=== PATIENT | male | born 1950 ===

== ENCOUNTER 2018-10-09 17:34 | Observation (INO) | payer MEDICARE ==
[2018-10-09 17:35] VITALS: BMI 29.9
[2018-10-09 18:18] LABS: BASO % 0.6 % (0.0-2.0); EOS # 0.2 K/uL (0.0-0.7); EOS % 3.6 % (0.0-4.0); HEMOGLOBIN 12.9 g/dL (12.0-18.0); LYMPH # 1.3 K/uL (1.0-4.3); LYMPH % 27.7 % (20.0-40.0); MEAN CELL VOLUME 94.8 fL (80.0-94.0); MEAN CORPUSCULAR HEMOGLOBIN 32.8 pg (27.0-31.0); MEAN CORPUSCULAR HGB CONC 34.6 g/dL (33.0-37.0); MEAN PLATELET VOLUME 7.9 fL (7.2-11.7); MONO # 0.7 K/uL (0.0-0.8); MONO % 14.4 % (0.0-10.0); NEUT # 2.5 K/uL (1.8-7.0); NEUT % 53.7 % (50.0-75.0); RBC 3.94 Mil/uL (4.40-5.90); RED CELL DISTRIBUTION WIDTH 12.4 % (11.5-14.5); WHITE BLOOD COUNT 4.6 K/uL (4.8-10.8)
[2018-10-09 18:30] LABS: ALB/GLOB RATIO 1.3 (1.0-2.1); ALBUMIN 4.2 g/dL (3.5-5.0); ALT/SGPT 33 U/L (21-72); AST/SGOT 30 U/L (17-59); BLOOD UREA NITROGEN 18 mg/dL (9-20); CALCIUM 9.2 mg/dl (8.6-10.4); GFR NON-AFRICAN AMERICAN 51
[2018-10-09 18:42] LABS: B-TYPE NATRIURETIC PEPTIDE 52.8 pg/mL (0-900)
--- NOTE | 2018-10-09 19:06 | C.PDOC ---
History Of Present Illness 68 year old male, with history of CAD with stents and HTN, is brought to ED by EMS after a pre-syncope episode in the bathroom. States he was eating lunch when he felt bloated, nauseous, and lightheadedness. Patient started burping a lot and felt slightly better. States he went to the bathroom when he suddenly felt like passing out, prompting him to call out to his son. Patient denies LOC, head injury, or falling. Patient was severely bradycardic in the 30s on arrival to ED but blood pressure is stable. Time Seen by Provider: 10/09/18 17:38 Chief Complaint (Nursing): Syncope History Per: Patient History/Exam Limitations: no limitations Onset/Duration Of Symptoms: Hrs Current Symptoms Are (Timing): Still Present Past Medical History Reviewed: Historical Data, Nursing Documentation, Vital Signs Vital Signs: Last Vital Signs Temp 97.5 F L 10/09/18 17:36 Pulse 36 L 10/09/18 17:36 Resp 18 10/09/18 17:36 BP 136/63 10/09/18 17:36 Pulse Ox 100 10/09/18 17:36 - Medical History PMH: HTN Surgical History: Coronary Stent Family History: States: No Known Family Hx - Social History Hx Alcohol Use: Yes Hx Substance Use: No - Immunization History Hx Tetanus Toxoid Vaccination: No Hx Influenza Vaccination: No Hx Pneumococcal Vaccination: No Review Of Systems Except As Marked, All Systems Reviewed And Found Negative. Cardiovascular: Positive for: Light Headedness. Negative for: Chest Pain Respiratory: Negative for: Shortness of Breath Gastrointestinal: Positive for: Nausea Musculoskeletal: Negative for: Neck Pain Neurological: Positive for: Other (Pre-syncope; no LOC). Negative for: Headache Physical Exam - Physical Exam Appears: Non-toxic, No Acute Distress Skin: Warm, Dry Head: Atraumatic, Normacephalic Eye(s): bilateral: Normal Inspection, PERRL, EOMI Oral Mucosa: Moist Neck: Supple Chest: Symmetrical Cardiovascular: Rhythm Regular, No Murmur Respiratory: Normal Breath Sounds, No Rales, No Rhonchi, No Wheezing Gastrointestinal/Abdominal: Soft, No Tenderness, Distention Extremity: Bilateral: Atraumatic, Normal Color And Temperature, Normal ROM Neurological/Psych: Oriented x3, Normal Speech ED Course And Treatment - Laboratory Results Result Diagrams: 10/09/18 18:15 10/09/18 18:15 ECG Rhythm: Sinus Bradycardia Interpretation Of ECG: No ST elevations or depressions. Rate From EC O2 Sat by Pulse Oximetry: 100 (RA) Pulse Ox Interpretation: Normal Medical Decision Making Medical Decision Making: Plan: --EKG --Bloodwork --Chest X-Ray Disposition Discussed With : Kyrie Quintana - Disposition Disposition: HOSPITALIZED Disposition Time: 19:29 Condition: GUARDED - Clinical Impression Clinical Impression: Near syncope, Bradyarrhythmia - Scribe Statement The provider has reviewed the documentation as recorded by the Dru Mcclain Provider Attestation: All medical record entries made by the Dru were at my direction and personally dictated by me. I have reviewed the chart and agree that the record accurately reflects my personal performance of the history, physical exam, medical decision making, and the department course for this patient. I have also personally directed, reviewed, and agree with the discharge instructions and disposition. Decision To Admit - Pt Status Changed To: Hospital Disposition Of: Observation - InPatient: Physician Admission Certification: I certify that this patient requires 2 or more midnights of care for the following reason:: severe bradycardia - . Bed Request Type: Telemetry Patient Diagnosis: Near syncope, Bradyarrhythmia
[2018-10-09 21:46] VITALS: RESP 20
--- NOTE | 2018-10-09 23:21 | CP.PCM.HP ---
Past Patient History - Past Social History Smoking Status: Never Smoked - CARDIAC Hx Hypertension: Yes - PSYCHIATRIC Hx Substance Use: No - SURGICAL HISTORY Hx Coronary Stent: Yes Meds Allergies/Adverse Reactions: Allergies Allergy/AdvReac Type Severity Reaction Status Date / Time No Known Allergies Allergy Verified 10/09/18 17:35 Results - Vital Signs Recent Vital Signs: Last Vital Signs Temp 97.9 F 10/09/18 21:45 Pulse 45 L 10/09/18 21:45 Resp 20 10/09/18 21:45 BP 138/69 10/09/18 21:45 Pulse Ox 100 10/09/18 21:45 - Labs Result Diagrams: 10/09/18 18:15 10/09/18 18:15 Labs: Laboratory Results - last 24 hr 10/09/18 10/09/18 18:15 18:15 WBC 4.6 L RBC 3.94 L Hgb 12.9 Hct 37.4 MCV 94.8 H MCH 32.8 H MCHC 34.6 RDW 12.4 Plt Count 233 MPV 7.9 Neut % (Auto) 53.7 Lymph % (Auto) 27.7 [place] % (Auto) 14.4 H Eos % (Auto) 3.6 Baso % (Auto) 0.6 Neut # (Auto) 2.5 Lymph # (Auto) 1.3 [place] # (Auto) 0.7 Eos # (Auto) 0.2 Baso # (Auto) 0.0 Sodium 136 Potassium 3.9 Chloride 100 Carbon Dioxide 29 Anion Gap 11 BUN 18 Creatinine 1.4 Est GFR ( Amer) > 60 Est GFR (Non-Af Amer) 51 Random Glucose 133 H Calcium 9.2 Total Bilirubin 0.5 AST 30 ALT 33 Alkaline Phosphatase 74 Troponin I < 0.0120 NT-Pro-B Natriuret Pep 52.8 Total Protein 7.3 Albumin 4.2 Globulin 3.1 Albumin/Globulin Ratio 1.3
[2018-10-10] MEDS: Enoxaparin 40 mg Syringe SC SCH (09:18)
--- NOTE | 2018-10-10 09:40 | RAD ---
Date of service: 10/09/2018 HISTORY: chest pain COMPARISON: None available. FINDINGS: LUNGS: External pacer identified in position. No active pulmonary disease. PLEURA: No significant pleural effusion identified, no pneumothorax apparent. CARDIOVASCULAR: No aortic atherosclerotic calcification present. Normal cardiac size. No pulmonary vascular congestion. OSSEOUS STRUCTURES: Sternotomy wires identified in position VISUALIZED UPPER ABDOMEN: Normal. OTHER FINDINGS: . IMPRESSION: No acute cardiopulmonary disease appreciated.
[2018-10-10] MEDS ORDERED: Home Med 1 UNIT (Fenofibrate,Micronized [Fenofibrate] 134 MG) PO SCH (10:00)
[2018-10-10] MEDS ORDERED: diltiaZEM 240 mg/24 Hours CD Cap PO SCH (10:00)
[2018-10-10] MEDS ORDERED: Home Med 1 UNIT (Dexlansoprazole [Dexilant] 60 MG) PO SCH (10:00)
[2018-10-10] MEDS ORDERED: Ergocalciferol 50,000 Intl Units Cap PO SCH (10:00)
--- NOTE | 2018-10-10 10:29 | CP.PCM.CON ---
History of Present Illness - History of Present Illness History of Present Illness: Dimitri Chilel DO, PGY-1 Cardiology Consultation Note for Dr. Bart Walker is a 68 year old Danish-speaking male (digital proofing and platemaker #[id number]) with PMH of CAD (s/p PCI approximately 3 months ago), paroxysmal AFib, stable angina, and HTN presented to ED following a pre-syncopal episode. Patient states that he was on the ground floor of his apartment when his phone rang up stairs. He ran up the stairs quickly and then he began to feel dizzy, nauseous, and felt like he had to lie down quickly. He states that he felt a little better after belching but the dizziness persisted, prompting him to come to ED for evaluation. On evaluation in ED, patient's symptoms had improved but HR was noted to be in the 30s. He admits that his medications were recently changed. He states that he was previously taking metoprolol but this was making him cough. So his lisinopril was increased from 30 mg to 60 mg and he was started on ranexa 1000 mg daily. Since admission, he states his symptoms have resolved and he denies fever/chills, CP, SOB, cough, dyspnea on exertion, palpitations, dizziness, abdominal pain/nausea/vomiting, THORNTON, changes in vision, or peripheral numbness/tingling. Primary penetration tester: Dr. Rooney PMH: CAD (s/p PCI approximately 3 months ago and CABG in 1989), paroxysmal AFib, stable angina, and HTN PSH: PCI, CABG in 1989 Home meds: lisinopril 60 mg daily, ranexa 1000 mg daily, plavix 75 mg daily, lipitor 40 mg daily, HCTZ 25 mg daily, diltiazem 240 mg daily, isosorbide mononitrate 30 mg daily Soc Hx: denies current or prior tobacco, alcohol, or drug use Allergies: NKA Fam Hx: reviewed, non-contributory Review of Systems - Constitutional Constitutional: absent: Chills, Fever - EENT Eyes: absent: Blurred Vision Ears: Disequilibrium, Dizziness - Cardiovascular Cardiovascular: absent: Chest Pain, Chest Pain at Rest, Chest Pain with Ac tivity, Diaphoresis, Dyspnea, Dyspnea on Exertion, Palpitations - Respiratory Respiratory: absent: Cough, Dyspnea - Gastrointestinal Gastrointestinal: absent: Abdominal Pain, Nausea, Vomiting - Genitourinary Genitourinary: absent: Change in Urinary Stream - Neurological Neurological: Disequilibrium, Dizziness. absent: Syncope Past Patient History - Past Social History Smoking Status: Never Smoked - CARDIAC Hx Hypertension: Yes - PSYCHIATRIC Hx Substance Use: No - SURGICAL HISTORY Hx Coronary Stent: Yes Meds Allergies/Adverse Reactions: Allergies Allergy/AdvReac Type Severity Reaction Status Date / Time No Known Allergies Allergy Verified 10/09/18 17:35 - Medications Medications: Current Medications Clopidogrel Bisulfate (Plavix) 75 mg PO DAILY [facility] Last Admin: 10/10/18 09:18 Dose: 75 mg Diltiazem HCl (Cardizem Cd) 240 mg PO DAILY [facility] Last Admin: 10/10/18 09:17 Dose: Not Given Enoxaparin Sodium (Lovenox) 40 mg SC DAILY [facility] Last Admin: 10/10/18 09:18 Dose: 40 mg Ergocalciferol (Drisdol 50,000 Intl Units Cap) 1 cap PO QWK [facility] Last Admin: 10/10/18 09:18 Dose: 1 cap Famotidine (Pepcid) 20 mg PO BID [facility] Last Admin: 10/10/18 09:18 Dose: 20 mg Home Med (Dexlansoprazole [Dexilant]) 60 mg PO DAILY [facility] Home Med (Fenofibrate,Micronized [Fenofibrate]) 134 mg PO DAILY [facility] Hydrochlorothiazide (Hydrodiuril) 25 mg PO DAILY [facility] Last Admin: 10/10/18 09:18 Dose: 25 mg Isosorbide Mononitrate (Imdur Er) 30 mg PO DAILY [facility] Last Admin: 10/10/18 09:18 Dose: 30 mg Nitroglycerin (Nitrostat Sl Tab) 0.4 mg SL DAILY PRN PRN Reason: ANGINA Rosuvastatin Calcium (Crestor) 20 mg PO [facility] Physical Exam - Constitutional Appears: Non-toxic, No Acute Distress - Head Exam Head Exam: ATRAUMATIC, NORMOCEPHALIC - Eye Exam Eye Exam: EOMI, Normal appearance, PERRL - ENT Exam ENT Exam: Mucous Membranes Moist - Neck Exam Neck exam: Positive for: Full Rom, Normal Inspection - Respiratory Exam Respiratory Exam: Clear to Auscultation Bilateral, NORMAL BREATHING PATTERN. absent: Rales, Rhonchi, Wheezes - Cardiovascular Exam Cardiovascular Exam: REGULAR RHYTHM, RRR, +S1, +S2. absent: Diastolic murmur, Gallop, Rubs, Systolic Murmur - GI/Abdominal Exam GI & Abdominal Exam: Normal Bowel Sounds, Soft. absent: Tenderness - Extremities Exam Extremities exam: Positive for: normal inspection. Negative for: pedal edema - Back Exam Back exam: FULL ROM, NORMAL INSPECTION - Neurological Exam Neurological exam: Alert, Oriented x3 - Psychiatric Exam Psychiatric exam: Normal Affect, Normal Mood - Skin Skin Exam: Dry, Intact, Warm Results - Vital Signs Recent Vital Signs: Last Vital Signs Temp 98.0 F 10/10/18 07:25 Pulse 57 L 10/10/18 09:17 Resp 20 10/10/18 07:25 BP 139/66 10/10/18 09:17 Pulse Ox 100 10/10/18 07:25 - Labs Result Diagrams: 10/09/18 18:15 10/09/18 18:15 Labs: Laboratory Results - last 24 hr 10/09/18 10/09/18 18:15 18:15 WBC 4.6 L RBC 3.94 L Hgb 12.9 Hct 37.4 MCV 94.8 H MCH 32.8 H MCHC 34.6 RDW 12.4 Plt Count 233 MPV 7.9 Neut % (Auto) 53.7 Lymph % (Auto) 27.7 [place] % (Auto) 14.4 H Eos % (Auto) 3.6 Baso % (Auto) 0.6 Neut # (Auto) 2.5 Lymph # (Auto) 1.3 [place] # (Auto) 0.7 Eos # (Auto) 0.2 Baso # (Auto) 0.0 Sodium 136 Potassium 3.9 Chloride 100 Carbon Dioxide 29 Anion Gap 11 BUN 18 Creatinine 1.4 Est GFR ( Amer) > 60 Est GFR (Non-Af Amer) 51 Random Glucose 133 H Calcium 9.2 Total Bilirubin 0.5 AST 30 ALT 33 Alkaline Phosphatase 74 Troponin I < 0.0120 NT-Pro-B Natriuret Pep 52.8 Total Protein 7.3 Albumin 4.2 Globulin 3.1 Albumin/Globulin Ratio 1.3 Assessment & Plan - Assessment and Plan (Free Text) Assessment: 68 yo M with PMH of CAD (s/p PCI approximately 3 months ago), paroxysmal AFib, stable angina, and HTN presents for pre-syncopal symptoms. Plan: Pre-Syncope Suspect 2/2 bradycardia Will order TTE to evaluate for other causes of bradycardia/cardiogenic syncope If TTE is normal and HR maintains > 60 overnight, will be safe for discharge tomorrow and close outpatient f/u with patient's primary penetration tester Hx CAD Continue ASA, plavix, crestor Hx HTN Continue home meds Case and plan reviewed and discussed with my attending Dr. Bart Chilel, DO IM Resident PGY-1
--- NOTE | 2018-10-10 12:59 | CP.PCM.PN ---
Subjective - Date & Time of Evaluation Date of Evaluation: 10/10/18 Time of Evaluation: 10:15 - Subjective Subjective: clinically same Objective - Vital Signs/Intake and Output Vital Signs (last 24 hours): Temp Pulse Resp BP Pulse Ox 98.0 F 54 L 20 139/66 100 10/10/18 07:25 10/10/18 12:00 10/10/18 07:25 10/10/18 09:17 10/10/18 07:25 - Medications Medications: Current Medications Clopidogrel Bisulfate (Plavix) 75 mg PO DAILY [facility] Last Admin: 10/10/18 09:18 Dose: 75 mg Diltiazem HCl (Cardizem Cd) 240 mg PO DAILY [facility] Last Admin: 10/10/18 09:17 Dose: Not Given Enoxaparin Sodium (Lovenox) 40 mg SC DAILY [facility] Last Admin: 10/10/18 09:18 Dose: 40 mg Ergocalciferol (Drisdol 50,000 Intl Units Cap) 1 cap PO QWK [facility] Last Admin: 10/10/18 09:18 Dose: 1 cap Famotidine (Pepcid) 20 mg PO BID [facility] Last Admin: 10/10/18 09:18 Dose: 20 mg Home Med (Dexlansoprazole [Dexilant]) 60 mg PO DAILY [facility] Home Med (Fenofibrate,Micronized [Fenofibrate]) 134 mg PO DAILY [facility] Hydrochlorothiazide (Hydrodiuril) 25 mg PO DAILY [facility] Last Admin: 10/10/18 09:18 Dose: 25 mg Isosorbide Mononitrate (Imdur Er) 30 mg PO DAILY [facility] Last Admin: 10/10/18 09:18 Dose: 30 mg Nitroglycerin (Nitrostat Sl Tab) 0.4 mg SL DAILY PRN PRN Reason: ANGINA Rosuvastatin Calcium (Crestor) 20 mg PO [facility] - Labs Labs: 10/09/18 18:15 10/09/18 18:15 - Constitutional Appears: Well - Head Exam Head Exam: ATRAUMATIC, NORMAL INSPECTION, NORMOCEPHALIC - Eye Exam Eye Exam: EOMI, Normal appearance, PERRL Pupil Exam: NORMAL ACCOMODATION, PERRL - ENT Exam ENT Exam: Mucous Membranes Moist, Normal Exam - Neck Exam Neck Exam: Full ROM, Normal Inspection. absent: Lymphadenopathy - Respiratory Exam Respiratory Exam: Decreased Breath Sounds - Cardiovascular Exam Cardiovascular Exam: REGULAR RHYTHM, +S1, +S2 - GI/Abdominal Exam GI & Abdominal Exam: Soft, Diminished Bowel Sounds - Rectal Exam Rectal Exam: Deferred
[2018-10-11 04:46] VITALS: TEMP 98.6
[2018-10-11 08:38] VITALS: BP 144/77; O2SAT 96
[2018-10-11 09:27] VITALS: PULSE 57
[2018-10-11] MEDS: Enoxaparin 40 mg Syringe SC SCH (10:51)
--- NOTE | 2018-10-11 13:13 | CP.PCM.PN ---
Subjective - Date & Time of Evaluation Date of Evaluation: 10/11/18 Time of Evaluation: 11:05 - Subjective Subjective: Dimitri Chilel DO, PGY-1 Cardiology Progress Note for Dr. Arriaga Patient was seen and examined at bedside this AM. He offers no new complaints and states he has not felt dizzy or other pre-syncopal symptoms since admission. He denies CP, SOB, palpitations, or abdominal pain/nausea/vomiting. Objective - Vital Signs/Intake and Output Vital Signs (last 24 hours): Temp Pulse Resp BP Pulse Ox 98.6 F 57 L 20 144/77 96 10/11/18 07:00 10/11/18 07:20 10/11/18 07:00 10/11/18 07:00 10/11/18 07:00 - Medications Medications: Current Medications Clopidogrel Bisulfate (Plavix) 75 mg PO DAILY [facility] Last Admin: 10/11/18 10:52 Dose: 75 mg Enoxaparin Sodium (Lovenox) 40 mg SC DAILY [facility] Last Admin: 10/11/18 10:51 Dose: 40 mg Ergocalciferol (Drisdol 50,000 Intl Units Cap) 1 cap PO QWK [facility] Last Admin: 10/10/18 09:18 Dose: 1 cap Famotidine (Pepcid) 20 mg PO BID [facility] Last Admin: 10/11/18 10:51 Dose: 20 mg Home Med (Dexlansoprazole [Dexilant]) 60 mg PO DAILY [facility] Home Med (Fenofibrate,Micronized [Fenofibrate]) 134 mg PO DAILY [facility] Hydrochlorothiazide (Hydrodiuril) 25 mg PO DAILY [facility] Last Admin: 10/11/18 10:51 Dose: 25 mg Isosorbide Mononitrate (Imdur Er) 30 mg PO DAILY [facility] Last Admin: 10/11/18 10:58 Dose: 30 mg Nitroglycerin (Nitrostat Sl Tab) 0.4 mg SL DAILY PRN PRN Reason: ANGINA Rosuvastatin Calcium (Crestor) 20 mg PO HS [facility] Last Admin: 10/10/18 22:02 Dose: 20 mg - Labs Labs: 10/09/18 18:15 10/09/18 18:15 - Constitutional Appears: Non-toxic, No Acute Distress - Head Exam Head Exam: ATRAUMATIC, NORMOCEPHALIC - Eye Exam Eye Exam: EOMI, Normal appearance, PERRL - ENT Exam ENT Exam: Mucous Membranes Moist - Neck Exam Neck Exam: Full ROM, Normal Inspection - Respiratory Exam Respiratory Exam: Clear to Ausculation Bilateral. absent: Rales, Rhonchi, Wheezes - Cardiovascular Exam Cardiovascular Exam: REGULAR RHYTHM, RRR, +S1, +S2. absent: Gallop, Rubs, Murmur - GI/Abdominal Exam GI & Abdominal Exam: Soft, Normal Bowel Sounds. absent: Tenderness - Extremities Exam Extremities Exam: Full ROM, Normal Inspection - Back Exam Back Exam: Full ROM, NORMAL INSPECTION - Neurological Exam Neurological Exam: Alert, Awake, Oriented x3 - Psychiatric Exam Psychiatric exam: Normal Affect, Normal Mood - Skin Skin Exam: Dry, Intact, Warm Assessment and Plan - Assessment and Plan (Free Text) Assessment: 68 yo M with PMH of CAD (s/p PCI approximately 3 months ago), paroxysmal AFib, stable angina, and HTN presents for pre-syncopal symptoms. Plan: Pre-Syncope Suspect 2/2 bradycardia TTE was completed, official read pending but interpreted by Dr. Arriaga and has no signs concerning for cardiogenic syncope Telemetry monitors were not consistently worn overnight but has been maintaining HR > 50 since this AM Patient may follow up with primary staff research associate, Dr. Rooney, within 1 week of discharge Will speak with Dr. Rooney and inform him of the work up that has been completed this admission Hx CAD Continue ASA, plavix, crestor Hx HTN Continue home meds Case and plan reviewed and discussed with my attending Dr. Bart Chilel DO IM Resident PGY-1
--- NOTE | 2018-10-11 14:49 | CARD ---
APPROVED REPORT Date of service: 10/09/2018 EKG Measurement Heart [id number] <Conclusion> Marked sinus bradycardia Abnormal ECG
--- NOTE | 2018-10-11 16:38 | CP.PCM.PN ---
Subjective - Date & Time of Evaluation Date of Evaluation: 10/11/18 Time of Evaluation: 15:00 - Subjective Subjective: [employer] WORK[employer] NOTES Objective - Vital Signs/Intake and Output Vital Signs (last 24 hours): Temp Pulse Resp BP Pulse Ox 98.6 F 57 L 20 144/77 96 10/11/18 07:00 10/11/18 07:20 10/11/18 07:00 10/11/18 07:00 10/11/18 07:00 - Labs Labs: 10/09/18 18:15 10/09/18 18:15 Assessment and Plan - Assessment and Plan (Free Text) Assessment: a/p 68 PMH of CAD s/p PCI approximately 3 months ago, paroxysmal AFib, stable angina, and HTN admitted pre-syncopal episode.and bradycardia Dr. Arriaga cardiology consult and seen patient today TTE was completed, official read pending but interpreted by Dr. Arriaga and has no signs concerning for cardiogenic syncope Patient may follow up with primary certified performance technologist, Dr. Rooney, within 1 week of dischargee today D/w Dr. Román Quintana cleared for discharge home otday and f/u with PMD and certified performance technologist in 3 days
--- NOTE | 2018-10-11 22:31 | CARD ---
APPROVED REPORT Date of service: 10/11/2018 EXAM: Two-dimensional and M-mode echocardiogram with Doppler and color Doppler. Other Information Quality : GoodRhythm : INDICATION Syncope coronary stent Surgery/Intervention CABG: RISK FACTORS Hypertension 2D DIMENSIONS IVSd0.8 (0.7-1.1cm)LVDd5.0 (3.9-5.9cm) PWd0.8 (0.7-1.1cm)LA [id number] (18-58mL) LVDs3.4 (2.5-4.0cm)FS (%) 31.7 % LVEF (%)59.4 (>50%)LVEF (York's)67.36 % IVC0.00 cm M-Mode DIMENSIONS RVDd1.40 (2.1-3.2cm)Left Atrium (MM)3.69 (2.5-4.0cm) IVSd1.01 (0.7-1.1cm)Aortic Root3.12 (2.2-3.7cm) LVDd5.08 (4.0-5.6cm)Aortic Cusp Exc.1.86 (1.5-2.0cm) PWd1.01 (0.7-1.1cm)FS (%) 45 % LVDs2.80 (2.0-3.8cm)LVEF (%)76 (>50%) Mitral Valve MV E Rdmmible52.4cm/sMV A Vkckgiek40.7cm/sE/A ratio0.8 TDI Lateral E' Peak V10.55cm/sMedial E' Peak V7.06cm/sE/Lateral E'7.1 E/Medial E'10.5 Tricuspid Valve TR Peak Uvunlvej010ux/sTR Peak Gr.[id number] LEFT VENTRICLE The left ventricle is normal size. There is normal left ventricular wall thickness. Left ventricle systolic function is normal. The Ejection Fraction is >70%. There is normal LV segmental wall motion. The left ventricular diastolic function is abnormal- Grade I-abnormal relaxation pattern. No left ventricle thrombus noted on this study. RIGHT VENTRICLE The right ventricle is normal size. The right ventricular systolic function is normal. ATRIA The left atrium size is normal. The right atrium size is normal. AORTIC VALVE The aortic valve is mildly thickened. The aortic valve is trileaflet. No aortic regurgitation is present. There is no aortic valvular stenosis. There is no aortic valvular vegetation. MITRAL VALVE Mitral annular calcification is borderline. There is no evidence of mitral valve prolapse. There is no mitral valve stenosis. Mitral regurgitation is trace to mild. TRICUSPID VALVE The tricuspid valve is normal in structure. There is trace to mild tricuspid regurgitation. Right ventricular systolic pressure is estimated at less than 30 mmHg. There is no pulmonary hypertension. There is no tricuspid valve prolapse or vegetation. There is no tricuspid valve stenosis. PULMONIC VALVE The pulmonic valve is not well visualized. There is no pulmonic valvular regurgitation. GREAT VESSELS The aortic root is normal in size. The IVC is normal in size and collapses >50% with inspiration. PERICARDIAL EFFUSION There is no pericardial effusion. There is no pleural effusion. <Conclusion> The left ventricle is normal size. Left ventricle systolic function is normal. The Ejection Fraction is >70%. The left ventricular diastolic function is abnormal- Grade I-abnormal relaxation pattern. The right ventricle is normal size. The right ventricular systolic function is normal. The left atrium size is normal. The right atrium size is normal. Mitral regurgitation is trace to mild. There is trace to mild tricuspid regurgitation.
== END 2018-10-11 14:20 | disposition home or self-care (01) ==
LOC: C.ER 17:34 → C.9E 19:30 → C.6T 20:16
PROVIDERS: ADMIT Internal Medicine Nephrology; ATTEND Internal Medicine Nephrology
DX: R00.1 Bradycardia, unspecified (principal); R55 Syncope and collapse; I25.118 Atherosclerotic heart disease of native coronary artery with other forms of angina pectoris; I48.0 Paroxysmal atrial fibrillation; Z79.02 Long term (current) use of antithrombotics/antiplatelets; Z95.1 Presence of aortocoronary bypass graft; I10 Essential (primary) hypertension
CPT/HCPCS: 71045; 80053; 83880; 84484; 85025; 93005; 93306; 96372; 99285; G0378; J1650